=== PATIENT | female | born 1985 | race Two or more races ===

== ENCOUNTER 2019-04-20 09:36 | Outpatient (CLI) | payer OTHER | END 2019-04-20 09:37 | disposition home or self-care (01) | LOC: RX STUDY 09:36 | DX: Z31.41 Encounter for fertility testing (principal); N70.11 Chronic salpingitis ==

== ENCOUNTER 2020-03-18 21:09 | Emergency (ER) | payer OTHER ==
[~2020-03-18] VITALS: Ht 162.6 cm; Wt 59.9 kg
[2020-03-18] MEDS ORDERED: PRENATABS FA T1 EACH (21:26)
== END 2020-03-18 22:03 | disposition home or self-care (01) ==
LOC: ER 21:09
DX: O46.8X2 Other antepartum hemorrhage, second trimester (principal); Z3A.17 17 weeks gestation of pregnancy

== ENCOUNTER 2020-05-21 12:08 | Outpatient (CLI) | payer OTHER ==
[~2020-05-21 12:08] MED LIST: PRENATABS FA T1 EACH
== END 2020-05-21 12:30 | disposition home or self-care (01) ==
LOC: NST 12:08
PROVIDERS: ATTEND Obstetrics & Gynecology
DX: Z34.83 Encounter for supervision of other normal pregnancy, third trimester (principal)

== ENCOUNTER 2020-07-28 09:36 | Outpatient (CLI) | payer OTHER | END 2020-07-28 10:13 | disposition home or self-care (01) | LOC: NST 09:36 | PROVIDERS: ATTEND Obstetrics & Gynecology | DX: Z34.83 Encounter for supervision of other normal pregnancy, third trimester (principal) ==

== ENCOUNTER 2020-07-31 13:30 | Inpatient (IN) | payer OTHER ==
[~2020-07-31] VITALS: Ht 162.6 cm; Wt 69.9 kg
== END 2020-08-12 14:01 | disposition home or self-care (01) | DRG 807 ==
LOC: LDR 08-10 14:25 → SURG-SUITE 08-10 14:25 → OB/GYN 08-23 13:30
PROVIDERS: ADMIT Obstetrics & Gynecology; ATTEND Obstetrics & Gynecology
PROC: 10E0XZZ Delivery of Products of Conception, External Approach (ICD-10-PCS; principal; 2020-08-10)
PROC: 0KQM0ZZ Repair Perineum Muscle, Open Approach (ICD-10-PCS; 2020-08-10)
PROC: 0W8NXZZ Division of Female Perineum, External Approach (ICD-10-PCS; 2020-08-10)
PROC: 4A1HXFZ Monitoring of Products of Conception, Cardiac Rhythm, External Approach (ICD-10-PCS; 2020-08-10)
DX: O70.1 Second degree perineal laceration during delivery (principal); Z37.0 Single live birth; O99.824 Streptococcus B carrier state complicating childbirth; Z3A.38 38 weeks gestation of pregnancy

== ENCOUNTER → 2020-08-03 | Outpatient (CLI) | payer OTHER | END | disposition home or self-care (01) | LOC: NST 16:04 | PROVIDERS: ATTEND Obstetrics & Gynecology | DX: Z34.83 Encounter for supervision of other normal pregnancy, third trimester (principal) ==

== ENCOUNTER 2023-09-15 09:25 | Emergency (ER) | payer OTHER ==
[~2023-09-15] VITALS: Ht 162.6 cm; Wt 56.2 kg
[2023-09-15] MEDS ORDERED: METOCLOPRAMIDE HCL 10 MG in DEXTROSE 5 % IN WATER 50 ML IV ONE (10:00)
[2023-09-15] MEDS ORDERED: 0.9 % SODIUM CHLORIDE 1,000 ML IV SCH (10:00)
[2023-09-15] MEDS ORDERED: MEPERIDINE HCL/PF 25 MG/ML VIAL IV ONE (10:00)
[2023-09-15] MEDS ORDERED: MEPERIDINE HCL/PF 25 MG/ML VIAL IM ONE (10:15)
[2023-09-15 10:43] LABS: HEMATOCRIT 41.3 % (36.0-45.00); HEMOGLOBIN 13.9 g/dL (12.0-15.00); MEAN CELL VOLUME 88.7 fL (80.00-100.00); MEAN CORPUSCULAR HEMOGLOBIN 29.9 pg (27.00-32.0); MEAN CORPUSCULAR HGB CONC 33.7 g/dl (32.0-36.0); RED BLOOD COUNT 4.65 M/uL (4.00-6.00); RED CELL DISTRIBUTION WIDTH 13.8 % (11.5-14.5)
[2023-09-15 11:16] LABS: ALBUMIN 3.8 gm/dL (3.4-5.0); BILIRUBIN TOTAL 0.89 mg/dL (0.3-1.2); CALCIUM 9.5 mg/dL (8.5-10.1); CREATININE SERUM 0.95 mg/dL (0.55-1.02); GFR 65.49; GLOBULINA 4.3 G/DL (2.4-3.5); POTASSIUM 3.69 mEq/L (3.5-5.1); TOTAL PROTEIN 8.1 gm/dL (6.4-8.2)
[2023-09-15 11:25] LABS: PLATELET COUNT 278 K/uL (150-450)
[2023-09-15 12:22] LABS: URINE APPEARANCE Clear; URINE BILIRRUBIN Negative (NEGATIVE); URINE BLOOD Large; URINE COLOR Yellow; URINE GLUCOSE Negative (NEGATIVE); URINE LEUKOCYTE Trace; URINE NITRATE Negative; URINE PROTEIN Negative (NEGATIVE); URINE UROBILINOGEN 0.2 E.U./dl
[2023-09-15 12:26] LABS: URINE BACTERIA 1211.9 uL (0.0-1933); URINE EPITHELIAL CELLS 82.4 uL (0.0-38.8); URINE RBC 271.7 uL (0.0-20.8); URINE WBC 9.5 uL (0.0-23.2)
[2023-09-15] MEDS ORDERED: TAMSULOSIN HCL 0.4 MG CAP PO ONE (12:45)
[2023-09-15] MEDS ORDERED: MORPHINE SULFATE 4 MG/ML CARTRIDGE IV ONE (12:45)
[2023-09-15] MEDS ORDERED: OxyCODONE HCL/APAP UD (PERCOCET) PO ONE (14:45)
== END 2023-09-15 14:59 | disposition home or self-care (01) ==
LOC: ER 09:25
PROVIDERS: General Practice
DX: N20.2 Calculus of kidney with calculus of ureter (principal); Z88.6 Allergy status to analgesic agent; Z91.040 Latex allergy status; Z91.013 Allergy to seafood